=== PATIENT | female | born 1965 | race Caucasian/White ===

== ENCOUNTER → 2020-01-11 | Outpatient (CLI) | payer OTHER | END | disposition home or self-care (01) | LOC: LABPAT 09:38 | PROVIDERS: ATTEND Orthopaedic Surgery | DX: Z01.812 Encounter for preprocedural laboratory examination (principal) | CPT/HCPCS: 87070 ==

== ENCOUNTER 2020-02-02 06:17 | Day surgery (SDC) | payer OTHER ==
[2020-01-29 11:10] VITALS: BMI 38.9
--- NOTE | 2020-02-01 09:26 | HP ---
HISTORY AND PHYSICAL CHIEF COMPLAINT: Left knee pain. 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 She notes swelling and stiffness in addition to the locking and giving way. She has been using a cane. She has tried medications and previous injections. She has had a previous knee arthroscopy. She notes the pain limits her normal function and activities. PAST MEDICAL HISTORY: Significant for arthritis, hypothyroidism, hypertension, hyperlipidemia, sleep apnea. PAST SURGICAL HISTORY: Significant for multiple hernia repairs, hysterectomy, right total knee arthroplasty. Nephrectomy, appendectomy, and cholecystectomy. CURRENT MEDICATIONS: Atorvastatin, levothyroxine, meloxicam, sertraline. She notes allergies to CELEBREX, DARVOCET, and BAND-AID ADHESIVES. FAMILY HISTORY: Significant for hypertension, coronary artery disease, hypercholesterolemia. SOCIAL HISTORY: Significant for 1/2 pack per day tobacco use. 16 POINT REVIEW OF SYSTEMS: Otherwise reviewed and is noncontributory. PHYSICAL EXAMINATION: On examination, patient is approximately 5 foot 3, 220 pounds of endomorphic habitus. HEENT: Exam is nonfocal. NECK: Supple. She has painless passive motion of left hip. Straight leg raise is negative. Active motion left knee, -12 to 85 degrees of flexion. She has a large effusion. She is tender about the medial joint line. Collaterals are stable, Laurie is negative, Anthony's is equivocal. She has genu varum alignment. Her distal neurovascular exam appears intact in the left lower extremity. Weightbearing notch, lateral Merchant views of left knee obtained in the office show severe medial and patellofemoral compartment narrowing. IMPRESSION: 1. Left knee severe medial and patellofemoral compartment osteoarthrosis. 2. Increased body mass index. 3. History of nephrectomy. RECOMMENDATIONS: I talked to the patient at length regarding her condition along with treatment options. At this point, she is quite limited because of pain related to her osteoarthrosis despite conservative measures. After thorough discussion, she opts to proceed with surgery. We will plan to proceed with left total knee arthroplasty. Risks and benefits were discussed at length in layman's terms. MMODL / IJN: [id number] /
[~2020-02-02 06:17] MED LIST: ACETAMINOPHEN TAB 500 MG TAB PO PRN; LIDOCAINE 1% (10MG/ML) FOR IV START INTRADERMA PRN; MELOXICAM 7.5 MG TAB PO PRN; ONDANSETRON 4 MG/2 ML VIAL IVP ONE; ROPIVACAINE 246.25 MG, EPINEPHrine 0.5 MG, KETOROLAC 30 MG, cloNIDine HCL/PF 80 MCG, WA... MISCELLANE PRN; TRANEXAMIC ACID 1,000 MG in SODIUM CHLORIDE 0.9% 100 ML IVPB PRN
[2020-02-02] MEDS: LACTATED RINGERS 1,000 ML IV SCH ×2 (07:25→11:00)
[2020-02-02] MEDS ORDERED: DEXAMETHASONE SOD PHOSPHATE 4 MG/ML 1 ML VIAL IVP ONE (07:26)
[2020-02-02] MEDS ORDERED: fentaNYL (PF) 50 MCG/ML 2 ML AMP IVP ONE (07:30)
[2020-02-02] MEDS ORDERED: MIDAZOLAM 2 MG/2 ML VIAL IVP ONE (07:30)
[2020-02-02] MEDS ORDERED: fentaNYL (PF) 50 MCG/ML 2 ML AMP ONE (07:55)
[2020-02-02] MEDS ORDERED: DEXAMETHASONE SOD PHOSPHATE 10 MG/ML 1 ML VIAL ONE (07:55)
[2020-02-02] MEDS ORDERED: LIDOCAINE 1% INJ 10MG/ML (20 ML MDV) ONE (07:55)
[2020-02-02] MEDS ORDERED: SUCCINYLCHOLINE CHLORIDE 100 MG/5 ML SYR IV ONE (07:55)
[2020-02-02] MEDS ORDERED: MIDAZOLAM 2 MG/2 ML VIAL ONE (07:55)
[2020-02-02] MEDS ORDERED: NEOSTIGMINE 1 MG/ML 10 ML VIAL ONE (07:55)
[2020-02-02] MEDS ORDERED: SODIUM CHLORIDE 0.9% 100 ML BAG ONE (07:55)
[2020-02-02] MEDS ORDERED: HYDROmorphone (PF) 1 MG/ML ONE (07:55)
[2020-02-02] MEDS ORDERED: GLYCOPYRROLATE 0.2 MG/ML 2 ML VIAL ONE (07:55)
[2020-02-02] MEDS ORDERED: ROCURONIUM 10 MG/ML (10 ML VIAL) IV ONE (07:55)
[2020-02-02] MEDS ORDERED: PROPOFOL 10 MG/ML 20 ML VIAL IV ONE (07:55)
[2020-02-02] MEDS ORDERED: ALBUTEROL HFA INHALER INHALATION ONE (07:55)
[2020-02-02] MEDS ORDERED: TRANEXAMIC ACID 1,000 MG/10 ML VIAL ONE (07:55)
[2020-02-02] MEDS ORDERED: ROPIVACAINE 0.2%-NS ON-Q PUMP 1,090 MG, EMPTY PAIN BALL 1 EACH MISCELLANE PRN (08:59)
--- NOTE | 2020-02-02 09:01 | P.ANPRN ---
Procedure Note - Anesthesia - Nerve Block Performed Left Adductor Canal Time Out Performed: Yes (:) Date of Procedure: 02/02/20 Procedure Start Time: Procedure Stop Time: Location of Patient: PreOp Indication: Acute Post-Operative Pain, Requested by Surgeon (Dr Gomez) Sedation Type: Sedate with meaningful contact maintained Preparation: Sterile Prep Position: Supine Catheter: Indwelling Needle Types: Pajunk Needle Gauge: 21 Ultrasound used to visualize needle placement: Yes Ultrasound used to observe medication spread: Yes Injectate: 0.5% Ropivacaine (see comment for volume) (20cc) Blood Aspirated: No Pain Paresthesia on Injection Noted: No Resistance on Injection: Normal Image Stored and Saved: Yes Events: Uneventful and Well Tolerated
[2020-02-02] MEDS ORDERED: LACTATED RINGERS 1,000 ML IV ONE (09:20)
[2020-02-02] MEDS ORDERED: HYDROcodone/APAP 7.5-325MG 1 EACH TAB PO PRN (09:40)
[2020-02-02] MEDS ORDERED: ACETAMINOPHEN TAB 325 MG TAB PO PRN (09:40)
[2020-02-02] MEDS ORDERED: NALOXONE 0.4 MG/ML 1 ML VIAL IV PRN (09:40)
[2020-02-02] MEDS ORDERED: ONDANSETRON 4 MG/2 ML VIAL IVP PRN (09:40)
--- NOTE | 2020-02-02 10:09 | P.OP ---
Date of Procedure: 02/02/20 Preoperative Diagnosis: Severe left knee tricompartmental osteoarthrosis Postoperative Diagnosis: Same Procedure(s) Performed: Left total knee arthroplastycementedcruciate retaining Implants: [employer] journey 2 size 5 cemented femoral component, size 4 cemented tibial component, 10 mm articular surface, 29 mm cemented patellar component. This is a cruciate retaining implant. Anesthesia: GETA, regional, local Surgeon: Piero Gomez Mica Paster #1: Ananth Sexton Estimated Blood Loss (ml): 50 Pathology: other (Bone fragments) Condition: stable Disposition: PACU Indications for Procedure: The patient's a 54-year-old female who presents with progressive left knee pain secondary to osteoarthrosis despite conservative measures. A discussion of the risks and benefits of operative intervention versus continued conservative measures was made with patient. She opted to proceed with surgery. Operative risks to include infection, neurovascular injury, development of blood clots, possible component loosening, possible component failure need for subsequent procedures was discussed. Informed consent was obtained. Operative Findings: As below Description of Procedure: The patient was brought to the operating room, and after induction of general endotracheal anesthesia the left lower extremity was prepped and draped in a normal fashion. The tourniquet was inflated to 270 mmHg. A longitudinal incision extending 3 finger breaths above the superior pole of the patella extending to the medial aspect the tibial tubercle was then made. The skin and subcutaneous tissues were divided sharply. Electrocautery was used for hemostasis. A medial parapatellar arthrotomy was then performed. The medial soft tissues to include the superficial and deep portions of the medial collateral ligament as well as the medial hamstring tendons were elevated subperiosteally. The proximal medial tibia osteophytes were carefully removed. The patella was everted. The knee was flexed. A portion of the retropatellar fat pad was excised sharply. The anterior cruciate ligament was sacrificed. A starting hole was made in the distal femur 1 cm anterior to the posterior cruciate origin. An intramedullary femoral guide was gently inserted planning on 5 valgus distal cut with 9 mm distal resection. The cutting block was pinned in place. The distal cut was then made. The posterior referencing sizing guide was utilized. 3 of external rotation was built into the system and verified off the trans-epicondylar axis and the posterior condyles. I felt size 5 was most appropriate. The cutting block was pinned in place. The anterior, posterior, and chamfer cuts were then made. The bone fragments were removed. A notch cut was then made with the appropriate guide. The trial size 5 femoral component was then placed and was fully seated. There was good anterior to posterior and medial to lateral fit. The distal peg holes were then drilled. The trial component was then removed. Attention was then paid towards preparing the proximal tibia. An extra medullary guide was utilized in line with the tibial shaft and second metatarsal distally. A 3 posterior slope was planned. I planned on 2 mm resection from the medial compartment. The cutting block was pinned in place. The proximal tibial cut was then made. The bone was removed in one fragment. The remnants of the medial and lateral menisci were excised the capsule junction with electrocautery. The tibia sized most appropriately at size 4. The posterior osteophytes off the distal femur were carefully removed with a curved osteotome. The trial tibial and femoral components were placed along with a 10 millimeters articular surface. I was able to obtain full flexion and extension with good stability with varus and valgus stress. After several flexion and extension cycles, the tibial rotation was marked with electrocautery in line with the medial one third of the tibial tubercle. Attention was then paid towards preparing the patella. A patella reamer was utilized taking this down to 14 mm of bone stock. A good flush cut was made. The patella sized most appropriately at 29 millimeters. The peg holes were then drilled. The trial component was placed. The knee was taken through a range of motion. I had good patellofemoral tracking with no hands technique. The trial components were then removed. The tibia was prepared in the appropriate rotation with appropriate drill and keel punch. The flexion and extension gaps were checked and felt to be symmetric. The posterior soft tissues were injected with ropivacaine. The bony surfaces were prepared with pulsatile lavage and dried. The deep tibial component was then cemented in place and was fully seated. Excess cement was removed. The femoral component was cemented in place and was fully seated. Again excess cement was removed. The trial 10 millimeters surface was then inserted in the knee was put in full extension. The patella component was cemented in place. After the cement had sufficiently hardened, the knee was again taken through a range of motion. Again there was good stability in flexion and extension with varus and valgus stress. The trial articular surface was then removed. The final articular surface was placed and was impacted. Care was taken to avoid any soft tissue interposition. Pulsatile lavage was again utilized. The tourniquet was deflated with approximately 65 minutes total tourniquet time. There was minimal drainage therefore a deep drain was not placed. The medial parapatellar arthrotomy was then closed with #2 Ethibond suture. The subcutaneous tissues were reapproximated interrupted 2-0 Vicryl sutures. The skin was reapproximated with 3-0 subarticular strata fix suture. Skin tape and adhesive was applied. A sterile dressing was applied. The patient was then awoken from general anesthesia and transferred to recovery room in good condition. Blood loss was estimated at 50 milliliters. No complications were incurred. Sponge and needle counts were correct at the end the case. Galdino SCHAFFER assisted during the major components this case to include exposure, bone resection, and implantation.
[2020-02-02 10:12] VITALS: TEMP 97.6
[2020-02-02] MEDS: HYDROmorphone 0.5 MG/0.5 ML SYRINGE IVP PRN ×3 (10:21→10:26)
--- NOTE | 2020-02-02 10:32 | XR ---
Right knee HISTORY: Postop 2 views of the right knee Patient is status post right knee arthroplasty. There is anatomic alignment. No sizable joint effusio n. IMPRESSION: Orthopedic follow-up.
[2020-02-02 13:27] VITALS: BP 105/69; PULSE 93; RESP 18
== END 2020-02-02 14:30 | disposition home health service (06) ==
LOC: OR 06:17
PROVIDERS: ATTEND Orthopaedic Surgery
DX: M17.12 Unilateral primary osteoarthritis, left knee (principal); M25.762 Osteophyte, left knee; Z96.651 Presence of right artificial knee joint; I10 Essential (primary) hypertension; E03.9 Hypothyroidism, unspecified; E78.5 Hyperlipidemia, unspecified; F17.210 Nicotine dependence, cigarettes, uncomplicated; G47.33 Obstructive sleep apnea (adult) (pediatric); Z90.710 Acquired absence of both cervix and uterus; Z98.890 Other specified postprocedural states; Z90.49 Acquired absence of other specified parts of digestive tract; Z90.5 Acquired absence of kidney; Z79.890 Hormone replacement therapy; Z79.899 Other long term (current) drug therapy; Z91.048 Other nonmedicinal substance allergy status; Z88.5 Allergy status to narcotic agent; Z88.6 Allergy status to analgesic agent; Z82.49 Family history of ischemic heart disease and other diseases of the circulatory system; Z88.2 Allergy status to sulfonamides
CPT/HCPCS: 97110; 97161; 64448; 76942; 73560; 27447; C1713; C1776; J2250; J0171; J1100; J0690; J2405; J3010; J1885; J2795 ×2; J0735; J1170; 88300

== ENCOUNTER 2020-02-07 20:37 | Emergency (ER) | payer OTHER ==
[2020-02-07] MEDS ORDERED: MORPHINE SULFATE 4 MG/ML SYRINGE IV STA (21:14)
[2020-02-07 22:07] LABS: Basophils # (A) 0.2 k/uL (0-0.2); Basophils % (A) 1 %; Eosinophils # (A) 0.5 k/uL (0-0.7); Eosinophils % (A) 4 %; HCT 37.5 % (34.0-46.0); HGB 12.9 gm/dL (11.4-16.0); Lymphocytes % (A) 25 %; MCH 31.2 pg (25.0-35.0); MCHC 34.4 g/dL (31.0-37.0); MCV 90.7 fL (80.0-100.0); Mean Platelet Volume 6.7; Monocytes # (A) 0.7 k/uL (0-1.0); Monocytes % (A) 6 %; Neutrophils # (A) 7.6 k/uL (1.3-7.7); Neutrophils % (A) 63 %; Platelet Count 353 k/uL (150-450); RBC 4.14 m/uL (3.80-5.40)
[2020-02-07 22:20] LABS: ALT 22 U/L (4-34); AST 26 U/L (14-36); African American GFR (CKD) >90 (>60 ml/min/1.73 sqM); Albumin 4.2 g/dL (3.5-5.0); Alkaline Phosphatase 74 U/L (38-126); Anion Gap 8 mmol/L; Blood Urea Nitrogen 16 mg/dL (7-17); Calcium 9.8 mg/dL (8.4-10.2); Carbon Dioxide 25 mmol/L (22-30); Chloride 103 mmol/L (98-107); Glucose 108 mg/dL (74-99); Non-African American GFR(CKD) 78 (>60 ml/min/1.73 sqM); Sodium 136 mmol/L (137-145); Total Bilirubin 0.7 mg/dL (0.2-1.3)
[2020-02-07 22:21] LABS: Potassium 4.3 mmol/L (3.5-5.1)
--- NOTE | 2020-02-07 22:24 | XR ---
EXAMINATION TYPE: XR knee complete LT DATE OF EXAM: 02/07/2020 COMPARISON: NONE HISTORY: Postop pain TECHNIQUE: 3 views FINDINGS: There is a left knee prosthesis. Components appear in anatomic position. There are some ant erior skin margaret. I see no fracture. IMPRESSION: No complicating process seen.
--- NOTE | 2020-02-07 23:36 | US ---
EXAMINATION TYPE: US venous doppler duplex LE LT DATE OF EXAM: 02/07/2020 10:02 PM COMPARISON: NONE CLINICAL HISTORY: post op pain . Recent left knee replacement SIDE PERFORMED: Left TECHNIQUE: The lower extremity deep venous system is examined utilizing real time linear array sonog brian with graded compression, doppler sonography and color-flow sonography. VESSELS IMAGED: Common Femoral Vein Deep Femoral Vein Greater Saphenous Vein * Femoral Vein Popliteal Vein Small Saphenous Vein * Proximal Calf Veins (* superficial vessels) Left Leg: Appears negative for DVT IMPRESSION: No sign of deep vein thrombosis in the left leg.
[2020-02-08 00:07] VITALS: BP 117/71; PULSE 86; RESP 18; TEMP 98.1
--- NOTE | 2020-02-08 00:11 | ED ---
General Adult HPI - General Chief complaint: Extremity Problem,Nontraumatic Stated complaint: Post Op Knee pain Time Seen by Provider: 02/07/20 20:46 Source: patient, RN notes reviewed, old records reviewed Mode of arrival: wheelchair Limitations: no limitations - History of Present Illness Initial comments: 54-year-old female patient G for evaluation of left knee pain. Patient had total knee replacement done on 02/01. She reports her pain has gotten worse the last 2 days. She also reports some swelling in the knee. Reports that she has some pain in the posterior knee as well. Denies any falls or trauma. She is taking Keflex prophylactically. Denies any other complaints. Systemic: Pt denies fatigue, fever/chills, rash. Pt denies weakness, night sweats, weight loss. Neuro: Pt denies headache, visual disturbances, syncope or pre-syncope. HEENT: Pt denies ocular discharge or irritation, otalgia, rhinorrhea, pharyngitis or notable lymphadenopathy. Cardiopulmonary: Pt denies chest pain, SOB, heart palpitations, dyspnea on exertion. Abdominal/GI: Pt denies abdominal pain, n/v/d. : Pt denies dysuria, burning w/ urination, frequency/urgency. Denies new onset urinary or bowel incontinence. Neuro: Pt denies new onset weakness, paresthesias. - Related Data Home Medications Medication Instructions Recorded Confirmed Cholecalciferol [Vitamin D3 (25 5,000 unit PO DAILY 01/29/20 02/07/20 Mcg = 1000 Iu)] Levothyroxine Sodium [Synthroid] 50 mcg PO DAILY 01/29/20 02/07/20 Meloxicam 15 mg PO DAILY 01/29/20 02/07/20 Sennosides [Senna] 8.6 mg PO BID 01/29/20 02/07/20 Sertraline [Zoloft] 100 mg PO HS 01/29/20 02/07/20 lisinopriL 20 mg PO DAILY 01/29/20 02/07/20 Atorvastatin [Lipitor] 20 mg PO HS 02/07/20 02/07/20 HYDROcodone/APAP 7.5-325MG [[place] 1 - 2 tab PO Q6HR PRN 02/07/20 02/07/20 7.5] Previous Rx's Medication Instructions Recorded Aspirin [Adult Low Dose Aspirin EC] 81 mg PO BID #60 tablet. 02/02/20 Cephalexin [Keflex] 500 mg PO Q6HR 5 Days #20 cap 02/02/20 Allergies Allergy/AdvReac Type Severity Reaction Status Date / Time acetaminophen Allergy Nausea & Verified 02/07/20 22:48 [From Darvocet-N] Vomiting adhesive tape Allergy Rash/Hives Verified 02/07/20 22:48 celecoxib [From Celebrex] Allergy Rash/Hives Verified 02/07/20 22:48 propoxyphene Allergy Nausea & Verified 02/07/20 22:48 [From Darvocet-N] Vomiting Sulfa (Sulfonamide Allergy Rash/Hives Verified 02/07/20 22:48 Antibiotics) Review of Systems ROS Statement: Those systems with pertinent positive or pertinent negative responses have been documented in the HPI. ROS Other: All systems not noted in ROS Statement are negative. Past Medical History Past Medical History: Hyperlipidemia, Hypertension, Thyroid Disorder History of Any Multi-Drug Resistant Organisms: MRSA Date of last positivie culture/infection: 2015 MDRO Source:: Abdomen Past Surgical History: Appendectomy, Bladder Surgery, Cholecystectomy, Hernia Repair, Hysterectomy, Orthopedic Surgery, Tonsillectomy Additional Past Surgical History / Comment(s): bilateral knee arthroplastys, left nephrectomy, lower colon surgery, mass removed from left breast Past Psychological History: Anxiety, Depression Smoking Status: Current every day smoker Past Alcohol Use History: None Reported Past Drug Use History: None Reported General Exam - General Exam Comments Initial Comments: Constitutional: NAD, AOX3, Pt has pleasant affect. HEENT: NC/AT, trachea midline, neck supple, no lymphadenopathy. External ears appear normal, without discharge. Mucous membranes moist. Eyes PERRLA, EOM intact. There is no scleral icterus. No pallor noted. Cardiopulmonary: RRR, no murmurs, rubs or gallops, no JVD noted. Lungs CTAB in anterior and posterior nieto. No peripheral edema. Abdominal exam: Abdomen soft and non-distended. Abdomen non-tender to palpation in all 4 quadrants. Bowel sounds active in LLQ. No hepatosplenomegaly. No ecchymosis Neuro: CN II-XII grossly intact. No nuchal rigidity. No raccon eyes, no patel sign, no hemotympanum. No cervical spinal tenderness. MSK: Left knee is mildly swollen. Mild generalized tenderness. Distal pulses intact and equal. Incision site is clean, no discharge noted. There is no significant erythema or signs of infection. Limitations: no limitations Course Vital Signs 02/07/20 02/07/20 02/08/20 20:38 22:39 00:06 Temperature 98.7 F 98.3 F 98.1 F Pulse Rate 96 92 86 Respiratory 18 17 18 Rate Blood Pressure 127/73 118/59 117/71 O2 Sat by Pulse 98 95 95 Oximetry Medical Decision Making - Medical Decision Making 54-year-old female patient G for evaluation of left knee pain. Patient had total knee replacement done on 02/01. She reports her pain has gotten worse the last 2 days. She also reports some swelling in the knee. Reports that she has some pain in the posterior knee as well. Denies any falls or trauma. She is taking Keflex prophylactically. Denies any other complaints. Pt VSS, afebrile. Physical exam displayed: Left knee is mildly swollen. Mild generalized tenderness. Distal pulses intact and equal. Incision site is clean, no discharge noted. There is no significant erythema or signs of infection. Laboratory investigations are unremarkable. Plain film ARE NEGATIVE FOR ACUTE PATHOLOGY. PATIENT IS STABLE FOR DISCHARGE SHE'LL FOLLOW-UP WITH HER SURGEON TOMORROW HER PAIN IS WELL-CONTROLLED. CASE DISCUSSED AND PATIENT seen by Dr. Angela. - Lab Data Result diagrams: 02/07/20 21:32 02/07/20 21:32 Lab Results 02/07/20 02/07/20 Range/Units 21:32 21:32 WBC 12.0 H (3.8-10.6) k/uL RBC 4.14 (3.80-5.40) m/uL Hgb 12.9 (11.4-16.0) gm/dL Hct 37.5 (34.0-46.0) % MCV 90.7 (80.0-100.0) fL MCH 31.2 (25.0-35.0) pg MCHC 34.4 (31.0-37.0) g/dL RDW 13.0 (11.5-15.5) % Plt Count 353 (150-450) k/uL MPV 6.7 Neutrophils % 63 % Lymphocytes % 25 % Monocytes % 6 % Eosinophils % 4 % Basophils % 1 % Neutrophils # 7.6 (1.3-7.7) k/uL Lymphocytes # 3.0 (1.0-4.8) k/uL Monocytes # 0.7 (0-1.0) k/uL Eosinophils # 0.5 (0-0.7) k/uL Basophils # 0.2 (0-0.2) k/uL Sodium 136 L (137-145) mmol/L Potassium 4.3 (3.5-5.1) mmol/L Chloride 103 (98-107) mmol/L Carbon Dioxide 25 (22-30) mmol/L Anion Gap 8 mmol/L BUN 16 (7-17) mg/dL Creatinine 0.85 (0.52-1.04) mg/dL Est GFR (CKD-EPI)AfAm >90 (>60 ml/min/1.73 sqM) Est GFR (CKD-EPI)NonAf 78 (>60 ml/min/1.73 sqM) Glucose 108 H (74-99) mg/dL Calcium 9.8 (8.4-10.2) mg/dL Total Bilirubin 0.7 (0.2-1.3) mg/dL AST 26 (14-36) U/L ALT 22 (4-34) U/L Alkaline Phosphatase 74 (38-126) U/L Total Protein 7.0 (6.3-8.2) g/dL Albumin 4.2 (3.5-5.0) g/dL Disposition Clinical Impression: Post-operative pain Disposition: HOME SELF-CARE Condition: Stable Instructions (If sedation given, give patient instructions): Precautions after Total Joint Replacement Surgery (ED) Additional Instructions: Follow up with surgeon tomorrow. Follow up with PCP in 1-2 days. Return to ED with any worsening symptoms. Is patient prescribed a controlled substance at d/c from ED?: No Referrals: [facility],Clinic [Primary Care Provider] - 1-2 days
[2020-02-08] MEDS ORDERED: MORPHINE SULFATE 2 MG/ML SYRINGE IV STA (00:22)
== END 2020-02-08 00:40 | disposition home or self-care (01) ==
LOC: EC 20:37
DX: G89.18 Other acute postprocedural pain (principal); M25.562 Pain in left knee; M79.89 Other specified soft tissue disorders; I10 Essential (primary) hypertension; E07.9 Disorder of thyroid, unspecified; E78.5 Hyperlipidemia, unspecified; F41.9 Anxiety disorder, unspecified; F32.9 Major depressive disorder, single episode, unspecified; F17.200 Nicotine dependence, unspecified, uncomplicated; Z79.890 Hormone replacement therapy; Z79.899 Other long term (current) drug therapy; Z79.1 Long term (current) use of non-steroidal anti-inflammatories (NSAID); Z88.6 Allergy status to analgesic agent; Z91.048 Other nonmedicinal substance allergy status; Z88.2 Allergy status to sulfonamides; Z88.5 Allergy status to narcotic agent; Z96.653 Presence of artificial knee joint, bilateral
CPT/HCPCS: 99284; 96374; 36415; 80053; 85025; 73562; 93971; 96376; J2270 ×2

== ENCOUNTER 2020-02-13 18:55 | Emergency (ER) | payer OTHER ==
[2020-02-13] MEDS ORDERED: SODIUM CHLORIDE 0.9% 500 ML 500 ML IV ONE (19:09)
[2020-02-13] MEDS ORDERED: FAMOTIDINE 20 MG/2 ML VIAL IV STA (19:09)
[2020-02-13] MEDS ORDERED: methylPREDNISolone SOD SUCCI 125 MG/2 ML VIAL IVP STA (19:10)
--- NOTE | 2020-02-13 19:13 | ED ---
Allergic Reaction HPI - General Chief complaint: Allergic Reaction Stated complaint: Allergic reaction to med/hives Time Seen by Provider: 02/13/20 19:02 Source: patient Mode of arrival: ambulatory Limitations: no limitations - History of Present Illness Initial Comments: 54-year-old female presents today for chief complaint of possible ALLERGIC reaction. Patient is initiated on Vistaril on Saturday. Patient states the past 2 days she has been itching and breaking out in hives. Patient denies any lip tongue swelling wheezing cough difficulty breathing she denies any abdominal pain nausea vomiting diarrhea. Patient denied any syncope or lightheadedness remaining review of system negative upon arrival patient appears well nontoxic acute distress - Related Data Home Medications Medication Instructions Recorded Confirmed Cholecalciferol [Vitamin D3 (25 5,000 unit PO DAILY 01/29/20 02/13/20 Mcg = 1000 Iu)] Levothyroxine Sodium [Synthroid] 50 mcg PO DAILY 01/29/20 02/13/20 Meloxicam 15 mg PO DAILY 01/29/20 02/13/20 Sennosides [Senna] 8.6 mg PO BID 01/29/20 02/13/20 Sertraline [Zoloft] 100 mg PO HS 01/29/20 02/13/20 lisinopriL 20 mg PO DAILY 01/29/20 02/13/20 Atorvastatin [Lipitor] 20 mg PO HS 02/07/20 02/13/20 HYDROcodone/APAP 7.5-325MG [[place] 1 - 2 tab PO Q6HR PRN 02/07/20 02/13/20 7.5] Aspirin EC [Ecotrin] 325 mg PO BID 02/13/20 02/13/20 hydrOXYzine pamoate [hydrOXYzine 25 mg PO QID PRN 02/13/20 02/13/20 PAMOATE] Previous Rx's Medication Instructions Recorded predniSONE 50 mg PO DAILY 4 Days #4 tab 02/13/20 Allergies Allergy/AdvReac Type Severity Reaction Status Date / Time acetaminophen Allergy Nausea & Verified 02/13/20 19:54 [From Darvocet-N] Vomiting adhesive tape Allergy Rash/Hives Verified 02/13/20 19:54 celecoxib [From Celebrex] Allergy Rash/Hives Verified 02/13/20 19:54 propoxyphene Allergy Nausea & Verified 02/13/20 19:54 [From Darvocet-Martín] Vomiting Sulfa (Sulfonamide Allergy Rash/Hives Verified 02/13/20 19:54 Antibiotics) Review of Systems ROS Statement: Those systems with pertinent positive or pertinent negative responses have been documented in the HPI. ROS Other: All systems not noted in ROS Statement are negative. Past Medical History Past Medical History: Hyperlipidemia, Hypertension, Sleep Apnea/CPAP/BIPAP, Thyroid Disorder History of Any Multi-Drug Resistant Organisms: MRSA Date of last positivie culture/infection: 2015 MDRO Source:: Abdomen Past Surgical History: Appendectomy, Bladder Surgery, Cholecystectomy, Hernia Repair, Hysterectomy, Orthopedic Surgery, Tonsillectomy Additional Past Surgical History / Comment(s): bilateral knee arthroplastys, left nephrectomy, lower colon surgery, mass removed from left breast, varicose veins stripped Past Psychological History: Anxiety, Depression Smoking Status: Current every day smoker Past Alcohol Use History: None Reported Past Drug Use History: None Reported General Exam - General Exam Comments Initial Comments: General: The patient is awake and alert, in no distress Eye: +3 mm pupils are equal, round and reactive to light, extra-ocular movements are intact. No nystagmus. There is normal conjunctiva bilaterally. No signs of icterus. Ears, nose, mouth and throat: There are moist mucous membranes and no oral lesions. No lip or tongue swelling. Cardiovascular: There is a regular rate and rhythm. No murmur, rub or gallop is appreciated. Respiratory: Lungs are clear to auscultation, respirations are non-labored, breath sounds are equal. No wheezes, stridor, rales, or rhonchi. Gastrointestinal: Soft, non-distended, non-tender abdomen without masses or organomegaly noted. There is no rebound or guarding present. Musculoskeletal: Normal ROM, no tenderness. Strength 5/5. Sensation intact. Radial pulses equal bilaterally 2+. Neurological: A&O x 3. CN II-XII intact grossly, There are no obvious motor or sensory deficits. Coordination appears grossly intact. Speech is normal. Skin: Skin is warm and dry and no rashes. raised wheels with some excoriation on hands, arms, in patches. no ulceration, no vesicular lesions or bullae. Psychiatric: Cooperative, appropriate mood & affect, normal judgment. Limitations: no limitations Course Vital Signs 02/13/20 02/13/20 02/13/20 18:57 19:08 19:32 Temperature 98.4 F Pulse Rate 98 91 Respiratory 18 18 18 Rate Blood Pressure 115/68 O2 Sat by Pulse 95 98 Oximetry 02/13/20 20:14 Temperature 98.8 F Pulse Rate 91 Respiratory 16 Rate Blood Pressure 103/61 O2 Sat by Pulse 97 Oximetry Medical Decision Making - Medical Decision Making improvement of itching. pt does not have symptoms, PE findings nor VS concerning for anaphylaxis. pt will be discharged with oral prednisone and instruction to discontinue new medication reconcile on Saturday wt PCP. Patient agreeable, return parameters discussed. pt discharged appearing well. Disposition Clinical Impression: Drug reaction, Urticaria Disposition: HOME SELF-CARE Condition: Good Instructions (If sedation given, give patient instructions): Anaphylaxis (ED), General Allergic Reaction (ED) Additional Instructions: Please use medication as discussed. Please follow-up with family doctor in the next 2 days. Discontinue the medications and see PCP for medication review on Saturday. Please return to emergency room if the symptoms increase or worsen or for any other concerns. Is patient prescribed a controlled substance at d/c from ED?: No Referrals: [facility],Clinic [Primary Care Provider] - 1-2 days Time of Disposition: 19:39
[2020-02-13 19:33] VITALS: PULSE 91
[2020-02-13 20:15] VITALS: BP 103/61; RESP 16; TEMP 98.8
== END 2020-02-13 20:14 | disposition home or self-care (01) ==
LOC: EC 18:55
DX: L50.0 Allergic urticaria (principal); T43.595A Adverse effect of other antipsychotics and neuroleptics, initial encounter; I10 Essential (primary) hypertension; E78.5 Hyperlipidemia, unspecified; G47.30 Sleep apnea, unspecified; E07.9 Disorder of thyroid, unspecified; F41.9 Anxiety disorder, unspecified; F32.9 Major depressive disorder, single episode, unspecified; F17.200 Nicotine dependence, unspecified, uncomplicated; Z79.890 Hormone replacement therapy; Z79.1 Long term (current) use of non-steroidal anti-inflammatories (NSAID); Z79.899 Other long term (current) drug therapy; Z79.82 Long term (current) use of aspirin; Z88.6 Allergy status to analgesic agent; Z91.048 Other nonmedicinal substance allergy status; Z88.2 Allergy status to sulfonamides; Z88.8 Allergy status to other drugs, medicaments and biological substances; Z99.89 Dependence on other enabling machines and devices
CPT/HCPCS: 99283; 96374; 96375; J2930